=== PATIENT | female | born 1980 | race Caucasian/White ===

== ENCOUNTER 2019-08-31 16:42 | Inpatient (IN) | payer OTHER ==
[~2019-08-31] VITALS: Ht 148.6 cm; Wt 5.0 kg
[2019-08-31 16:55] VITALS: BP 128/82
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
--- NOTE | 2019-08-31 19:04 | NUR ---
PT UNABLE TO GIVE UA AT THIS TIME.
--- NOTE | 2019-08-31 19:13 | NUR ---
REPORT GIVEN TO IMTIAZ WAITE FOR CHANGE OF SHIFT.
--- NOTE | 2019-08-31 19:33 | NUR ---
BLOOD DRAWN AT THIS TIME
[2019-08-31 20:03] LABS: BASOPHILS # (AUTO) 0.1 K/uL (0.00-0.22); BASOPHILS % (AUTO) 0.5 % (0.0-2.0); EOSINOPHILS # (AUTO) 0.1 K/uL (0-0.4); EOSINOPHILS % (AUTO) 0.7 % (0.0-4.0); HEMATOCRIT 31.9 % (36-48); HEMOGLOBIN 10.8 g/dL (12.0-16.0); LYMPHOCYTES # (AUTO) 2.3 K/uL (2.5-16.5); LYMPHOCYTES % (AUTO) 22.8 % (20.5-51.1); MEAN CORPUSCULAR HEMOGLOBIN 32 pg (27-31); MEAN CORPUSCULAR HGB CONC 34 g/dL (33-37); MEAN CORPUSCULAR VOLUME 93.2 fL (80-94); MONOCYTES # (AUTO) 0.8 K/uL (0.8-1.0); MONOCYTES % (AUTO) 7.5 % (1.7-9.3); NEUTROPHILS # (AUTO) 7.1 K/uL (1.8-7.7); NEUTROPHILS % (AUTO) 68.5 % (42.2-75.2); PLATELET COUNT (AUTO) 239 K/uL (140-450); RED BLOOD CELL COUNT(AUTO) 3.42 MIL/uL (4.20-5.40); RED CELL DISTRIBUTION WIDTH 13.3 % (11.6-13.7); WHITE BLOOD COUNT (AUTO) 10.3 K/uL (4.8-10.8)
[2019-08-31 20:16] LABS: ANION GAP 13.4 (8-16); CARBON DIOXIDE 26.3 mmol/L (21-32); CREATININE 0.5 mg/dL (0.6-1.3); POTASSIUM 3.7 mmol/L (3.5-5.1)
[2019-08-31 20:30] LABS: ALBUMIN 2.7 g/dL (3.4-5.0); TOTAL BILIRUBIN 0.2 mg/dL (0.0-1.0)
--- NOTE | 2019-08-31 20:42 | NUR ---
URINE COLLECTED AND SENT TO LAB AT THIS TIME
[2019-08-31 20:47] LABS: APPEARANCE,URINE CLEAR (CLEAR); BILIRUBIN,URINE NEGATIVE (NEGATIVE); BLOOD, URINE NEGATIVE (NEGATIVE); COLOR,URINE YELLOW (YELLOW); LEUKOCYTE ESTERASE ,URINE NEGATIVE (NEGATIVE); NITRITE, URINE NEGATIVE (NEGATIVE); PH,URINE 7.5 (5.0-9.0); UGLUCOSE NEGATIVE (NEGATIVE)
--- NOTE | 2019-08-31 21:55 | NUR ---
PT ADMITTED TO [facility] RM #[id number]. TRANSFERRED PT VIA WHEELCHAIR; STABLE CONDITION. REPORT GIVEN TO CAITLIN KITCHEN. TRANSFER OF CARE AT THIS TIME.
[2019-08-31 22:20] VITALS: BP 120/69
--- NOTE | 2019-08-31 22:20 | NUR ---
RECIEVED PT. FROM ER AAOX4 . NID , DENIES ANY PAIN AT THIS TIME , AMBULATES .ADMISSION ASSESSMENT DONE . POC DISCUSSED AND VERBALIZE UNDERSTANDING . WILL CONT. TO MONITOR.
[2019-09-01 04:00] VITALS: BP 110/60
--- NOTE | 2019-09-01 04:00 | NUR ---
MADE ROUNDS . NO COMPLAIN MADE AT THIS TIME. CALL LIGHT WITHIN REACH.
--- NOTE | 2019-09-01 06:37 | NUR ---
MADE ROUNDS , DENIES ANY PAIN AT THIS TIME . WILL CONT. TO MONITOR.
--- NOTE | 2019-09-01 07:19 | NUR ---
RECEIVED REPORT FROM NIGHT NURSE. PT IN BED AAOX4, DENIES PAIN, NO DISTRESS NOTED. RESPIRATIONS EVEN AND UNLABORED ON ROOM AIR. IV IN PLACE, PATENT AND ASYMPTOMATIC SALINE LOCKED IN R H 22G. SKIN INTACT, AMBULATORY. REGULAR DIET. SAFETY MEASURES IN PLACE. CALL LIGHT WITHIN REACH, BED IN LOW POSITION. WILL CONTINUE TO MONITOR.
--- NOTE | 2019-09-01 07:19 | NUR ---
ENDORSED. PT - STABLE.
[2019-09-01 08:00] VITALS: BP 110/63
--- NOTE | 2019-09-01 08:31 | NUR ---
PATIENT HAS BEEN SCREENED AND CATEGORIZED LOW NUTRITION RISK. PATIENT WILL BE SEEN WITHIN 5-7 DAYS OF ADMISSION. 09/05/2019-09/07/[address]
--- NOTE | 2019-09-01 09:12 | NUR ---
PT IN BED AWAKE, DENIES PAIN, NO DISTRESS NOTED. SAFETY MEASURES IN PLACE. CALL LIGHT WITHIN REACH, WILL CONTINUE TO MONITOR.
--- NOTE | 2019-09-01 11:00 | NUR ---
PT IN BED, AWAKE, AAOX4. DENIES PAIN, NO DISTRESS NOTED. SAFETY MEASURES IN PLACE. WILL CONTINUE TO MONITOR.
--- NOTE | 2019-09-01 12:21 | NUR ---
PT IN BED SLEEPING, NO DISTRESS NOTED. WILL CONTINUE TO MONITOR.
[2019-09-01 14:37] VITALS: BP 112/70
--- NOTE | 2019-09-01 15:00 | NUR ---
PT DISCHARGED HOME AT THIS TIME. DISCHARGE AND FOLLOW UP TEACHING GIVEN, PT VERBALIZED UNDERSTANDING. FLU VACCINE REFUSED. DISCHARGE PAPERWORK SIGNED BY PT. BELONGINGS VERIFIED AND RETURNED. IV SITE REMOVED WITH MINIMAL BLOOD LOSS AND LUMEN INTACT. ID BANDS REMOVED. RESPIRATIONS EVEN AND UNLABORED. SKIN INTACT. PT IN STABLE CONDITION. PT ESCORTED OFF UNIT ON FOOT IN COMPANY OF SIGNIFICANT OTHER. LEFT IN PRIVATE VEHICLE.
== END 2019-09-01 15:05 | disposition home or self-care (01) | DRG 566 ==
LOC: MED 16:42 → MTU 21:12
PROVIDERS: ADMIT Obstetrics & Gynecology; ATTEND Obstetrics & Gynecology
DX: O43.892 Other placental disorders, second trimester (principal); O23.42 Unspecified infection of urinary tract in pregnancy, second trimester; D25.9 Leiomyoma of uterus, unspecified; J45.909 Unspecified asthma, uncomplicated; O99.512 Diseases of the respiratory system complicating pregnancy, second trimester; O34.12 Maternal care for benign tumor of corpus uteri, second trimester; Z3A.17 17 weeks gestation of pregnancy; V49.49XA Driver injured in collision with other motor vehicles in traffic accident, initial encounter; Y93.89 Activity, other specified; Y92.89 Other specified places as the place of occurrence of the external cause; Y99.8 Other external cause status
CPT/HCPCS: 36415; 76805; 76815; 80053; 81003; 85025; 85384; 86900; 86901; 87081; 99285; Q0092

== ENCOUNTER 2021-09-26 15:18 | Inpatient (IN) | payer BC, SELFPAY ==
[~2021-09-26] VITALS: Ht 152.4 cm; Wt 47.6 kg
[2021-09-26 15:25] VITALS: BP 122/65
--- NOTE | 2021-09-26 15:46 | NUR ---
PT AMB TO BED 11.
--- NOTE | 2021-09-26 15:58 | NUR ---
DR. BAH BEDSIDE EVALUATING PT
[2021-09-26] MEDS ORDERED: MORPHINE SULFATE 2 MG/ML SYR IVP ONE (16:00)
[2021-09-26] MEDS ORDERED: NACL 0.9% 1,000 ML IV ONE (16:00)
[2021-09-26] MEDS ORDERED: ONDANSETRON 4 MG/2 ML VIAL IVP ONE (16:00)
[2021-09-26] MEDS ORDERED: DICYCLOMINE HCL LIQUID 20 MG, ALUMINUM HYD/MAG/SIMETHICONE 30 ML, LIDOCAINE VISCOUS 2% ... PO ONE ×3 (16:00)
[2021-09-26] MEDS ORDERED: DICYCLOMINE HCL LIQUID 10 MG/5 ML UDC ONE (16:13)
[2021-09-26] MEDS ORDERED: ALUMINUM HYD/MAG/SIMETHICONE 30 ML UDC ONE (16:13)
--- NOTE | 2021-09-26 16:44 | NUR ---
BLOODWORK COLLECTED AND WALKED OVER TO LAB
[2021-09-26 17:02] LABS: BASOPHILS % (AUTO) 0.1 % (0.0-2.0); EOSINOPHILS % (AUTO) 0.2 % (0.0-4.0); HEMATOCRIT 45.9 % (36-48); HEMOGLOBIN 15.7 g/dL (12.0-16.0); LYMPHOCYTES # (AUTO) 0.7 K/uL (2.5-16.5); LYMPHOCYTES % (AUTO) 6.6 % (20.5-51.1); MEAN CORPUSCULAR HEMOGLOBIN 30 pg (27-31); MEAN CORPUSCULAR HGB CONC 34 g/dL (33-37); MEAN CORPUSCULAR VOLUME 88.8 fL (80-94); MONOCYTES # (AUTO) 0.7 K/uL (0.8-1.0); MONOCYTES % (AUTO) 7.1 % (1.7-9.3); NEUTROPHILS # (AUTO) 8.6 K/uL (1.8-7.7); PLATELET COUNT (AUTO) 346 K/uL (140-450); RED BLOOD CELL COUNT(AUTO) 5.17 MIL/uL (4.20-5.40); RED CELL DISTRIBUTION WIDTH 13.5 % (11.6-13.7)
[2021-09-26 17:17] LABS: ALBUMIN 0.1 g/dL (3.4-5.0)
[2021-09-26] MEDS ORDERED: PIPERACILLIN/TAZOBACTAM 3.375 GM in DEXTROSE 5% 50 ML IV ONE (17:35)
[2021-09-26 17:37] LABS: ANION GAP 22.3 (8-16); CARBON DIOXIDE 19.2 mmol/L (21-32)
[2021-09-26 17:39] LABS: POTASSIUM 11.5 mmol/L (3.5-5.1)
--- NOTE | 2021-09-26 17:43 | NUR ---
Jeffrey gibbs in [facility] - 09/26/21 at 1743 by JOSIANE URINE COLLECTED AND WALKED TO THE LAB
--- NOTE | 2021-09-26 18:07 | NUR ---
# 16 FR NG tube placed to RIGHT nare. Placement checked by auscultation of instilled air into stomach and aspiration of gastric contents. Tubing taped in place to prevent dislodging. Patient tolerated WELL.
--- NOTE | 2021-09-26 18:10 | NUR ---
JONATHAN SWAB WALKED TO LAB
--- NOTE | 2021-09-26 18:20 | NUR ---
LAB AT BEDSIDE COLLECTING BLOODWORK
--- NOTE | 2021-09-26 18:30 | NUR ---
xray at patient bedside
--- NOTE | 2021-09-26 18:34 | NUR ---
BELONGINGS LIST PLACED IN CHART.
[2021-09-26] MEDS ORDERED: DEXT 5% /NACL 0.9% 1,000 ML IV SCH (18:35)
--- NOTE | 2021-09-26 18:40 | NUR ---
Patient will be admitted to care of DR. VILLAREAL. Admited to MED-SURG. MED-SURG HOLD IN ED BED 11. Belongings list completed.
[2021-09-26] MEDS ORDERED: PIPERACILLIN/TAZOBACTAM 3.375 GM VIAL IV ONE (19:02)
[2021-09-26] MEDS: MORPHINE SULFATE 2 MG/ML SYR IVP PRN (19:15)
[2021-09-26 19:19] LABS: ALBUMIN 2.9 g/dL (3.4-5.0); ANION GAP 13.3 (8-16); CARBON DIOXIDE 22.2 mmol/L (21-32); CREATININE 0.6 mg/dL (0.6-1.3); POTASSIUM 3.5 mmol/L (3.5-5.1); TOTAL BILIRUBIN 0.4 mg/dL (0.0-1.0)
--- NOTE | 2021-09-26 19:19 | NUR ---
Pt report given to DARYA GARNICA Transfer of care at this time.
[2021-09-26 19:27] LABS: ANION GAP 13.3 (8-16); CARBON DIOXIDE 21.2 mmol/L (21-32); CREATININE 0.6 mg/dL (0.6-1.3); POTASSIUM 3.5 mmol/L (3.5-5.1)
--- NOTE | 2021-09-26 20:00 | NUR ---
Patient will be admitted to care of DR VILLAREAL. Admited to Med/Surg. Will go to room 113. Belongings list completed. Report to TERRENCE KITCHEN.
--- NOTE | 2021-09-26 20:05 | NUR ---
LABS AT BEDSIDE
[2021-09-26] MEDS ORDERED: PROPOFOL 200 MG/20 ML VIAL IV ONE (20:13)
[2021-09-26] MEDS ORDERED: fentaNYL citrate 0.05 MG/ML VIAL ONE (20:14)
[2021-09-26] MEDS ORDERED: SUGAMMADEX SODIUM 200 MG/2 ML VIAL IV ONE (20:14)
[2021-09-26] MEDS ORDERED: LIDOCAINE 1% 500 MG/50 ML VIAL ONE (20:28)
[2021-09-26] MEDS ORDERED: BUPIVACAINE-MPF/EPI 0.25% 30 ML VIAL INJ ONE (20:28)
[2021-09-26 20:41] LABS: PROTHROMBIN TIME 9.3 secs (10.8-13.4)
[2021-09-26 20:45] VITALS: BP 131/86
[2021-09-26] MEDS ORDERED: LACTATED RINGERS 1,000 ML IV SCH (20:45)
[2021-09-26] MEDS ORDERED: ONDANSETRON 4 MG/2 ML VIAL IVP PRN ×2 (20:45)
[2021-09-26] MEDS ORDERED: MEPERIDINE 25 MG/ML SYR IVP PRN ×2 (20:45)
[2021-09-26] MEDS ORDERED: HYDROmorphone 1 MG/ML AMP IVP PRN ×2 (20:45)
[2021-09-26] MEDS ORDERED: ONDANSETRON 4 MG/2 ML VIAL ONE (21:20)
[2021-09-26] MEDS ORDERED: DEXAMETHASONE 4 MG/ML VIAL ONE (21:20)
[2021-09-26] MEDS ORDERED: ROCURONIUM 50 MG/5 ML VIAL IV ONE (21:20)
[2021-09-26] MEDS ORDERED: SEVOFLURANE 250 ML BTL INH ONE (21:20)
[2021-09-26] MEDS ORDERED: KCL 20 MEQ/WATER INJ PREMIX 200 ML IV PRN (22:45)
[2021-09-26] MEDS ORDERED: DOCUSATE SODIUM 100 MG GELCAP PO PRN (22:45)
[2021-09-26] MEDS ORDERED: ZOLPIDEM 5 MG TAB PO PRN (22:45)
[2021-09-26] MEDS ORDERED: ACETAMINOPHEN 325 MG TAB PO PRN (22:45)
[2021-09-26] MEDS ORDERED: HYDROcodone/APAP 7.5/325 MG 1 TAB PO PRN (22:45)
[2021-09-26] MEDS ORDERED: guaiFENesin DM 200/20 MG-10 ML 10 ML UDC PO PRN (22:45)
[2021-09-26] MEDS ORDERED: ONDANSETRON 4 MG/5 ML ORASYR GT PRN (22:45)
--- NOTE | 2021-09-26 23:22 | NUR ---
She has returned from the OR. She has pulled out the IV. She has refused to have one inserted. She is greatly irritated by the NG tube. She wants it out. We are trying to figure out how to handle her case.
[2021-09-26 23:25] VITALS: BP 122/97
[2021-09-26 23:40] VITALS: BP 151/94
[2021-09-26 23:55] VITALS: BP 143/91
[2021-09-26 23:56] LABS: FREE T4 (FREE THYROXINE) 1.02 ng/dL (0.76-1.46); MAGNESIUM 1.7 mg/dL (1.8-2.4); PHOSPHORUS 3.9 mg/dL (2.5-4.9); THYROID STIMULATING HORMONE 1.86 uIU/mL (0.34-3.74)
[2021-09-27] MEDS: MORPHINE SULFATE 2 MG/ML SYR IVP PRN ×2 (00:05→06:58)
[2021-09-27 00:10] VITALS: BP 138/87
[2021-09-27] MEDS: DEXT 5% /NACL 0.9% 1,000 ML IV SCH ×3 (00:19→20:12)
--- NOTE | 2021-09-27 00:20 | NUR ---
We have been able to insert a new IV line in the right hand gauge 22. We were not able to advance the catheter all the way in. We had a good blood return, and the line flushes well. It is patnt. Nausea, and pain medications have been administered. IV fluids are infusing now. She has calm down now. NG tube is to low intermittent suction.
[2021-09-27 00:40] VITALS: BP 145/91
[2021-09-27 01:10] VITALS: BP 125/78
[2021-09-27] MEDS: HYDROmorphone 1 MG/ML AMP IVP PRN ×2 (02:28→20:47)
[2021-09-27 04:00] VITALS: BP 128/78
[2021-09-27] MEDS: LACTATED RINGERS 1,000 ML IV SCH ×2 (04:31→05:05)
--- NOTE | 2021-09-27 07:46 | NUR ---
RECEIVED REPORT FROM TECHNICAL INTERNSHIP NURSE. PT STABLE
[2021-09-27 07:58] LABS: ANION GAP 15.5 (8-16); CARBON DIOXIDE 13.3 mmol/L (21-32); CREATININE 0.3 mg/dL (0.6-1.3); POTASSIUM 4.8 mmol/L (3.5-5.1)
[2021-09-27] MEDS: PANTOPRAZOLE 40 MG INJ VIAL IVP SCH (08:40)
--- NOTE | 2021-09-27 08:41 | NUR ---
SPOKE TO LAB, CRITICAL VALUES REPORTED FOR BG 726 AND CR 0.3, LAB TO REDRAW PT. BG CHECKED AT BEDSIDE 134. PT STATED EXTERMINATOR TERMITE JAVY BLOOD FROM PERIPHERAL IV IN PT HAND. PT STABLE. NO S/S OF DISTRESS. CALL LIGHT IN REACH. WILL WAIT FOR NEW LABS. CALL LIGHT IN REACH. ALL SAFETY MEASURES IN PLACE
[2021-09-27 10:07] LABS: BASOPHILS % (AUTO) 0.1 % (0.0-2.0); HEMATOCRIT 38.6 % (36-48); HEMOGLOBIN 12.8 g/dL (12.0-16.0); LYMPHOCYTES # (AUTO) 0.7 K/uL (2.5-16.5); MEAN CORPUSCULAR HEMOGLOBIN 30 pg (27-31); MEAN CORPUSCULAR HGB CONC 33 g/dL (33-37); MEAN CORPUSCULAR VOLUME 90.5 fL (80-94); MONOCYTES # (AUTO) 0.4 K/uL (0.8-1.0); NEUTROPHILS # (AUTO) 9.1 K/uL (1.8-7.7); NEUTROPHILS % (AUTO) 88.9 % (42.2-75.2); PLATELET COUNT (AUTO) 280 K/uL (140-450); RED BLOOD CELL COUNT(AUTO) 4.27 MIL/uL (4.20-5.40); RED CELL DISTRIBUTION WIDTH 13.2 % (11.6-13.7); WHITE BLOOD COUNT (AUTO) 10.3 K/uL (4.8-10.8)
[2021-09-27 11:37] LABS: HEMATOCRIT 38.6 % (36-48); HEMOGLOBIN 12.7 g/dL (12.0-16.0); LYMPHOCYTES # (AUTO) 0.7 K/uL (2.5-16.5); LYMPHOCYTES % (AUTO) 7.3 % (20.5-51.1); MEAN CORPUSCULAR HEMOGLOBIN 30 pg (27-31); MEAN CORPUSCULAR HGB CONC 33 g/dL (33-37); MEAN CORPUSCULAR VOLUME 90.4 fL (80-94); MONOCYTES # (AUTO) 0.5 K/uL (0.8-1.0); MONOCYTES % (AUTO) 4.7 % (1.7-9.3); PLATELET COUNT (AUTO) 282 K/uL (140-450); RED BLOOD CELL COUNT(AUTO) 4.26 MIL/uL (4.20-5.40); RED CELL DISTRIBUTION WIDTH 13.3 % (11.6-13.7); WHITE BLOOD COUNT (AUTO) 10.2 K/uL (4.8-10.8)
[2021-09-27 11:41] LABS: ANION GAP 12.4 (8-16); CARBON DIOXIDE 27.2 mmol/L (21-32); CREATININE 0.7 mg/dL (0.6-1.3); POTASSIUM 4.6 mmol/L (3.5-5.1); TOTAL BILIRUBIN 0.4 mg/dL (0.0-1.0)
[2021-09-27 12:00] VITALS: BP 117/72
--- NOTE | 2021-09-27 12:42 | NUR ---
PT RESTING IN BED. LUNCH AT BEDSIDE. NO S/S OF DISTRESS. CALL LIGHT IN REACH. ALL SAFETY MEASURES IN PLACE
--- NOTE | 2021-09-27 15:00 | NUR ---
NEW ORDER FOR ZOSYN. PT DENIES PASSING FLATUS OR BM. NO S/S OF DISTRESS. CALL LIGHT IN REACH. ALL SAFETY MEASURES IN PLACE
[2021-09-27] MEDS: PIPERACILLIN/TAZOBACTAM 3.375 GM in DEXTROSE 5% 50 ML IV SCH ×2 (15:19→20:46)
--- NOTE | 2021-09-27 19:36 | NUR ---
ENDORSED PT TO NUCLEAR SPECTROSCOPIST NURSE
[2021-09-27 20:00] VITALS: BP 127/82
[2021-09-27] MEDS: ONDANSETRON 4 MG/2 ML VIAL IM/IVP PRN (20:46)
[2021-09-28] MEDS: HYDROmorphone 1 MG/ML AMP IVP PRN ×3 (02:00→21:23)
[2021-09-28 04:00] VITALS: BP 127/72
[2021-09-28] MEDS: DEXT 5% /NACL 0.9% 1,000 ML IV SCH ×3 (05:02→21:23)
[2021-09-28] MEDS: PIPERACILLIN/TAZOBACTAM 3.375 GM in DEXTROSE 5% 50 ML IV SCH ×3 (05:02→21:22)
[2021-09-28] MEDS: MORPHINE SULFATE 2 MG/ML SYR IVP PRN ×2 (06:21→16:15)
[2021-09-28] MEDS: ONDANSETRON 4 MG/2 ML VIAL IM/IVP PRN (06:22)
[2021-09-28] MEDS: PANTOPRAZOLE 40 MG INJ VIAL IVP SCH (08:36)
--- NOTE | 2021-09-28 11:07 | NUR ---
PER MD VILLAREAL'S ORDER - NGT REMOVED. SWITCHED TO CLEAR LIQUID DIET, WILL CONTINUE TO MONITOR
--- NOTE | 2021-09-28 11:29 | NUR ---
PATIENT HAS BEEN SCREENED AND CATEGORIZED MODERATE NUTRITION RISK. PATIENT WILL BE SEEN WITHIN 3-5 DAYS OF ADMISSION. 09/28/21-10/02/[address]
[2021-09-28 12:00] VITALS: BP 132/68
[2021-09-28 22:19] VITALS: BP 126/69
[2021-09-29 04:36] VITALS: BP 120/70
[2021-09-29] MEDS: PIPERACILLIN/TAZOBACTAM 3.375 GM in DEXTROSE 5% 50 ML IV SCH ×2 (05:17→12:58)
[2021-09-29] MEDS: HYDROmorphone 1 MG/ML AMP IVP PRN (05:53)
--- NOTE | 2021-09-29 06:54 | NUR ---
patient vitals are stable. no complain of pain , she sleeps comfortable in her bed. patient report was endorsed to [facility] nurse for continuity of care
--- NOTE | 2021-09-29 07:20 | NUR ---
REPORT RECEIVED FROM PM RN FOR CONTINUITY OF CARE, PT APPEARS ASLEEP, NO ACUTE DISTRESS, VSS, SAFETY MEASURES MAINTAINED, CALL LIGHT WITHIN REACH, WILL CONTINUE TO MONITOR
[2021-09-29 07:45] LABS: BASOPHILS % (AUTO) 0.1 % (0.0-2.0); EOSINOPHILS % (AUTO) 0.2 % (0.0-4.0); HEMATOCRIT 32.6 % (36-48); LYMPHOCYTES # (AUTO) 1.1 K/uL (2.5-16.5); LYMPHOCYTES % (AUTO) 12.7 % (20.5-51.1); MEAN CORPUSCULAR HEMOGLOBIN 30 pg (27-31); MEAN CORPUSCULAR HGB CONC 34 g/dL (33-37); MEAN CORPUSCULAR VOLUME 89.3 fL (80-94); MONOCYTES # (AUTO) 0.6 K/uL (0.8-1.0); MONOCYTES % (AUTO) 6.5 % (1.7-9.3); NEUTROPHILS % (AUTO) 80.5 % (42.2-75.2); PLATELET COUNT (AUTO) 250 K/uL (140-450); RED BLOOD CELL COUNT(AUTO) 3.65 MIL/uL (4.20-5.40); WHITE BLOOD COUNT (AUTO) 8.7 K/uL (4.8-10.8)
[2021-09-29 07:53] LABS: ANION GAP 10.5 (8-16); CARBON DIOXIDE 29.4 mmol/L (21-32); CREATININE 0.5 mg/dL (0.6-1.3)
[2021-09-29 08:11] LABS: POTASSIUM 2.9 mmol/L (3.5-5.1)
[2021-09-29] MEDS: PANTOPRAZOLE 40 MG INJ VIAL IVP SCH (09:10)
[2021-09-29] MEDS: KCL 20 MEQ/WATER INJ PREMIX 100 ML IV SCH ×2 (10:41→11:12)
[2021-09-29] MEDS: DEXT 5% /NACL 0.9% 1,000 ML IV SCH (10:49)
[2021-09-29] MEDS: MORPHINE SULFATE 2 MG/ML SYR IVP PRN (11:12)
[2021-09-29 12:00] VITALS: BP 127/68
--- NOTE | 2021-09-29 13:59 | NUR ---
PT LEFT AMA, DR COOPER INFORMED. EXPLAINED RISK OF LEAVING AMA. IV REMOVED, VSS, PT PICKED UP BY FAMILY.
== END 2021-09-29 14:00 | disposition left against medical advice (07) | DRG 224 ==
LOC: MED 15:18 → MMU 18:39 → MTU 19:43
PROVIDERS: ADMIT Family Medicine; ATTEND Family Medicine
PROC: 0DN80ZZ Release Small Intestine, Open Approach (ICD-10-PCS; principal; 2021-09-26 21:30)
DX: K56.609 Unspecified intestinal obstruction, unspecified as to partial versus complete obstruction (principal); U07.1 COVID-19; E44.0 Moderate protein-calorie malnutrition; E87.1 Hypo-osmolality and hyponatremia; J45.909 Unspecified asthma, uncomplicated; Z20.822 Contact with and (suspected) exposure to COVID-19; Z68.20 Body mass index [BMI] 20.0-20.9, adult; Z90.49 Acquired absence of other specified parts of digestive tract
CPT/HCPCS: 36415; 43753; 71045; 80048; 80053; 82150; 82948; 83036; 83605; 83690; 83735; 83880; 84100; 84132; 84436; 84439; 84443; 84479; 85025; 85610; 85730; 86886; 86900; 86901; 87040; 87081; 96365; 96375; 99285; C9113; J1100; J1170; J2001; J2270; J2405; J2543; J2704; J3010; J3480; J3490; J7030; J7060

== ENCOUNTER 2023-04-24 23:10 | Emergency (ER) | payer MEDICAID ==
[~2023-04-24] VITALS: Ht 152.4 cm; Wt 41.7 kg
[2023-04-24 23:22] VITALS: BP 149/93; PULSE 103; RESP 14; TEMP 98.4; O2SAT 100
[2023-04-25] MEDS ORDERED: NACL 0.9% 1,000 ML IV SCH (00:15)
[2023-04-25 00:28] LABS: APPEARANCE,URINE CLEAR (CLEAR); BILIRUBIN,URINE NEGATIVE (NEGATIVE); BLOOD, URINE 1+ (NEGATIVE); COLOR,URINE YELLOW (YELLOW); LEUKOCYTE ESTERASE ,URINE NEGATIVE (NEGATIVE); NITRITE, URINE NEGATIVE (NEGATIVE); PROTEIN,URINE NEGATIVE (NEGATIVE); UGLUCOSE NEGATIVE (NEGATIVE); UROBILINOGEN,URINE 0.2 EU/dL (0.2 - 1)
[2023-04-25 00:35] LABS: RBC,URINE 0-5 /HPF (0-5); WBC,URINE 0-5 /HPF (0-5)
[2023-04-25 00:36] LABS: BACTERIA,URINE >30 (MANY) /HPF (None Seen); MUCUS,URINE 1+ /LPF (None Seen); SQUAMOUS EPITHELIAL CELL,UR 20-50 /LPF (0-3 (FEW))
[2023-04-25 00:50] LABS: BASOPHILS % (AUTO) 0.5 % (0.0-2.0); EOSINOPHILS # (AUTO) 0.1 K/uL (0-0.4); EOSINOPHILS % (AUTO) 0.8 % (0.0-4.0); HEMATOCRIT 38.4 % (36-48); HEMOGLOBIN 12.7 g/dL (12.0-16.0); LYMPHOCYTES # (AUTO) 2.4 K/uL (2.5-16.5); MEAN CORPUSCULAR HEMOGLOBIN 31 pg (27-31); MEAN CORPUSCULAR HGB CONC 33 g/dL (33-37); MEAN CORPUSCULAR VOLUME 92.4 fL (80-94); MONOCYTES # (AUTO) 0.7 K/uL (0.8-1.0); MONOCYTES % (AUTO) 8.2 % (1.7-9.3); NEUTROPHILS # (AUTO) 5.1 K/uL (1.8-7.7); NEUTROPHILS % (AUTO) 61.5 % (42.2-75.2); PLATELET COUNT (AUTO) 281 K/uL (140-450); RED BLOOD CELL COUNT(AUTO) 4.15 MIL/uL (4.20-5.40); RED CELL DISTRIBUTION WIDTH 13.2 % (11.6-13.7); WHITE BLOOD COUNT (AUTO) 8.3 K/uL (4.8-10.8)
[2023-04-25 00:59] LABS: INR 0.92 (0.8-1.2); PARTIAL THROMBOPLASTIN TIME 27.9 secs (22-35.6); PROTHROMBIN TIME 9.7 secs (10.8-13.4)
[2023-04-25 01:01] LABS: ALBUMIN 3.8 g/dL (3.4-5.0); ANION GAP 11.7 (8-16); CALCIUM 8.9 mg/dL (8.5-10.1); CARBON DIOXIDE 27.3 mmol/L (21-32); CREATININE 0.7 mg/dL (0.6-1.3); TOTAL BILIRUBIN 0.4 mg/dL (0.0-1.0)
[2023-04-25] MEDS ORDERED: MORPHINE SULFATE 4 MG/ML SYR IVP ONE (01:25)
[2023-04-25] MEDS ORDERED: ONDANSETRON 4 MG/2 ML VIAL IVP ONE (01:25)
[2023-04-25] MEDS ORDERED: FAMOTIDINE 20 MG/2 ML VIAL IVP ONE (01:25)
[2023-04-25] MEDS ORDERED: diphenhydrAMINE 50 MG/ML VIAL IVP ONE (01:55)
[2023-04-25 02:11] VITALS: O2SAT 100
[2023-04-25 02:16] VITALS: O2SAT 100
[2023-04-25 05:54] VITALS: O2SAT 99
[2023-04-25] MEDS ORDERED: SUCR1TAB35 PO (06:22)
[2023-04-25] MEDS ORDERED: FAMO-90 PO (06:22)
[2023-04-25] MEDS ORDERED: PANT40EC PO (06:22)
[2023-04-25] MEDS ORDERED: ONDA-188 PO (06:23)
[2023-04-25 06:28] VITALS: BP 139/95; PULSE 91; RESP 11; O2SAT 99
== END 2023-04-25 06:25 | disposition home or self-care (01) ==
LOC: MED 23:10
DX: R10.13 Epigastric pain (principal); R11.10 Vomiting, unspecified; Z88.1 Allergy status to other antibiotic agents; Z88.6 Allergy status to analgesic agent; Z90.49 Acquired absence of other specified parts of digestive tract; Z98.890 Other specified postprocedural states
CPT/HCPCS: 36415; 74177; 80053; 81001; 81025; 83690; 85025; 85610; 85730; 87040; 87086; 96361; 96374; 96375; 99285; J1200; J2270; J2405; J3490; J7030; Q9967; 99284